=== PATIENT | female | born 1990 | race Caucasian/White ===

== ENCOUNTER 2017-10-26 17:08 | Inpatient (IN) | payer OTHER ==
[~2017-10-26] VITALS: Ht 165.1 cm; Wt 55.3 kg
[2017-10-26 17:51] LABS: HEMATOCRIT 41.1 % (36.0-46.0); HEMOGLOBIN 14.7 G/DL (11.9-15.5); MCH 32.3 PG (29.0-34.0); MCHC 35.8 G/DL (30.0-36.0); MCV 90.3 FL (83-99); PLATELET COUNT 203 K/uL (156-360); RBC DIS.WIDTH-CV 12.2 % (11.8-14.6); RBC DIS.WIDTH-SD 40.8 % (39-53); RED BLOOD COUNT 4.55 M/uL (3.80-5.20); WHITE BLOOD COUNT 10.9 K/uL (4.1-10.2)
[2017-10-26 18:03] LABS: CHLORIDE 106 mEq/L (99-109); POTASSIUM 3.5 mEq/L (3.7-5.4); SODIUM 138 mEq/L (136-147)
[2017-10-26 18:04] LABS: GLUCOSE 102 mg/dL (70-99)
[2017-10-26 18:08] LABS: CREATININE 0.6 mg/dL (0.6-1.3)
[2017-10-26 18:09] LABS: UREA NITROGEN (BUN) 9 mg/dL (9-23)
[2017-10-26 18:10] LABS: GFR ESTIMATE (CALCULATED) > 59 mL/min/
[2017-10-26 18:11] LABS: TROP-I INTERPRETATION NEGATIVE; TROPONIN-I < 0.01 ng/mL (0.0-0.30)
[2017-10-26] MEDS ORDERED: ALPRAZOLAM0.25 M2 PO (19:05)
[2017-10-26 22:02] VITALS: BP 114/65
[2017-10-26 23:50] VITALS: BP 114/68
[2017-10-27 03:35] VITALS: BP 105/57
[2017-10-27 08:20] VITALS: BP 106/88
[2017-10-27 11:39] VITALS: BP 120/67
[2017-10-27 15:56] VITALS: BP 120/79
[2017-10-27 20:16] VITALS: BP 110/63
[2017-10-28 00:27] VITALS: BP 108/55
[2017-10-28 04:27] VITALS: BP 106/52
[2017-10-28 07:55] VITALS: BP 104/63
[2017-10-28 16:07] VITALS: BP 105/69
== END 2017-10-28 16:38 | disposition home or self-care (01) | DRG 201 ==
LOC: EME 17:08 → EDOF 20:18 → 2EAST 20:18 → ENRESERV 20:20 → 2EAST 21:52
PROVIDERS: Emergency Medicine
PROC: 0W9930Z Drainage of Right Pleural Cavity with Drainage Device, Percutaneous Approach (ICD-10-PCS; principal; 2017-10-27)
DX: J93.83 Other pneumothorax (principal); K21.9 Gastro-esophageal reflux disease without esophagitis; F17.200 Nicotine dependence, unspecified, uncomplicated
CPT/HCPCS: 71045; 71046; 80048; 84484; 85027; 85610; 85730; 93005; 99281; 99285; J1170; J1650; J2270; J3010; J7030

== ENCOUNTER 2017-11-25 17:53 | Emergency (ER) | payer OTHER ==
[~2017-11-25] VITALS: Ht 165.1 cm; Wt 59.0 kg
[~2017-11-25 17:53] MED LIST: ALPRAZOLAM0.25 M2 PO
[2017-11-25 18:43] LABS: HEMATOCRIT 38.7 % (36.0-46.0); HEMOGLOBIN 13.8 G/DL (11.9-15.5); MCH 32.6 PG (29.0-34.0); MCHC 35.7 G/DL (30.0-36.0); MCV 91.5 FL (83-99); PLATELET COUNT 188 K/uL (156-360); RBC DIS.WIDTH-CV 12.4 % (11.8-14.6); RBC DIS.WIDTH-SD 41.9 % (39-53); RED BLOOD COUNT 4.23 M/uL (3.80-5.20); WHITE BLOOD COUNT 7.6 K/uL (4.1-10.2)
[2017-11-25 18:53] LABS: CHLORIDE 108 mEq/L (99-109); POTASSIUM 3.8 mEq/L (3.7-5.4); SODIUM 141 mEq/L (136-147)
[2017-11-25 18:55] LABS: GLUCOSE 90 mg/dL (70-99)
[2017-11-25 18:59] LABS: CREATININE 0.7 mg/dL (0.6-1.3); GFR ESTIMATE (CALCULATED) > 59 mL/min/
[2017-11-25 19:00] LABS: UREA NITROGEN (BUN) 9 mg/dL (9-23)
[2017-11-25 20:18] LABS: D-DIMER ELISA < 150.00 ng/mLDDU (<230)
[2017-11-25 20:29] LABS: QUANTITATIVE HCG < 4.0 MIU/ML
[2017-11-25] MEDS ORDERED: INDOCIN50 MG PO (20:57)
[2017-11-25 21:18] VITALS: BP 139/83
== END 2017-11-25 21:19 | disposition home or self-care (01) ==
LOC: EME 17:53
DX: R09.1 Pleurisy (principal); R07.81 Pleurodynia; J45.909 Unspecified asthma, uncomplicated; K21.9 Gastro-esophageal reflux disease without esophagitis; F41.9 Anxiety disorder, unspecified; Z87.891 Personal history of nicotine dependence
CPT/HCPCS: 71046; 80048; 84702; 85027; 85379; 99281; 99283